=== PATIENT | female | born 1950 | race Caucasian/White ===

== ENCOUNTER 2016-06-17 15:33 | Inpatient (IN) | payer OTHER ==
[~2016-06-17] VITALS: Ht 167.6 cm; Wt 113.4 kg
--- NOTE | 2016-06-17 16:19 | NUR ---
PT BROUGHT IN BY CO-WORKER FOR COMPLAINT OF GENERAL ILLNESS AND NOT FEELING WELL. PT WORKS AT [employer]. PT STATED TO CO-WORKERS THAT SHE WAS NOT FEELING WELL. SHE HAD VOMITED MULTIPLE TIMES AND WAS FEELING COLD. EMS CALLED AND PT. WAS EVALUATED. PT WAS FOUND TO BY HYPOTENSIVE AND TACHYCARDIC. PT DID NOT WANT TO BE TRANSPORTED AND SIGNED OUT AMA. EMS LEFT AND PT CONDITION CONTINED TO BECOME WORSE. PT WAS TRANSPORTED TO ED BY CO-WORKERS AND EN ROUTE TO ED PT HAD LARGE DIARRHEA BOWEL MOVEMENT. UPON ARRIVAL PT APPEARED WEAK AND REQUIRED ASSISTANCE TO [place]. CLOTHING REMOVED AND PT WAS CLEANED. PT WAS ABLE TO OFFER ASSISTANCE BY ROLLING OVER SIDE TO SIDE DURING CLEAN UP. IV STARTED AND PT. PLACED ON CM. MSE COMPLETED BY DR. GARCÍA.
--- NOTE | 2016-06-17 16:30 | NUR ---
LAB AT BEDSIDE FOR BLOOD DRAW
[2016-06-17 16:42] LABS: BASOPHIL % 0.1 % (0-2); PLATELET COUNT 156 x10^3mcL (130-400); RED CELL DISTRIBUTION WIDTH 14.5 % (11.5-14.5)
[2016-06-17 16:53] LABS: CALCIUM 8.1 mg/dL (8.5-10.1); CARBON DIOXIDE 16.7 mmol/L (21-32); CREATININE SERUM 3.4 mg/dL (0.6-1.0); POTASSIUM SERUM 3.3 mmol/L (3.5-5.1)
[2016-06-17 17:04] LABS: BILIRUBIN TOTAL 0.9 mg/dL (0.20-1.00)
[2016-06-17 17:05] LABS: ALBUMIN 2.9 g/dL (3.4-5.0)
--- NOTE | 2016-06-17 17:17 | NUR ---
GAVE PT ICE CHIPS, OK PER DR. GARCÍA.
[2016-06-17 17:39] LABS: CK-MB 0.8 ng/mL (0-3.6)
--- NOTE | 2016-06-17 18:53 | NUR ---
REPORT CALLED TO VALORIE MORENO, SHE WILL ASSUME CARE PRIMARY RN POST TRANSFER.
--- NOTE | 2016-06-17 19:02 | NUR ---
INFORMED [place] OF NEEDING TO FINISH 2LITERS OF NS GOING AT 150ML/HR, NEEDS TO BE FULLY ADMINISTERED FOR SEPSIS PROTOCOL.
[2016-06-17 19:15] VITALS: BP 109/64
--- NOTE | 2016-06-17 19:46 | NUR ---
RECEIVED REPORT FROM VALORIE MORENO. PT RECEIVING NS AT 150ML/HR PER ORDER. ORIENTED TO ROOM AND SURROUNDINGS. SURU TO ADMIT PATIENT AT THIS TIME.
[2016-06-17 19:52] LABS: CHOLESTEROL/HDL RATIO 7.3
[2016-06-17 19:56] LABS: FREE T4 0.26 ng/dL (0.76-1.46)
[2016-06-17 19:58] LABS: T3 TOTAL 0.58 ng/mL
--- NOTE | 2016-06-17 20:00 | NUR ---
RECEIVED PATIENT FROM NURSE SURU. A & 0 X 4. LUNG SOUNDS CLEAR AND UNLABORED, ON NC @ 2L. DENIES ABD PAIN. BOWEL SOUNDS ACTIVE X 4 QUADRANTS. VOIDS WITHOUT DIFFICULTY. C/O GENERALIZED WEAKNESS. SKIN INTACT. IVF INFUSING NS AT 150 ML/HR TO LEFT WRIST, NO REDNESS OR SWELLING. RADIAL PULSES PALPABLE. PEDAL PULSES PAPLPABLE BUT WEAK. BED IN LOW POSITION, CALL LIGHT WITHIN REACH. INSTRUCTED TO CALL FOR ASSISTANCE.
[2016-06-17 20:08] VITALS: BP 109/64
--- NOTE | 2016-06-17 20:11 | NUR ---
RECEIVED PT FROM ED VIA [place]. ORIENTED PT TO ROOM AND SURROUNDINGS. IV NOTED TO LW AND RFA PATENT AND INTACT. TELE 7 PLACED ON PT READING STA. INSTRUCTED PT ON THE USE OF CALL LIGHT FOR ASSISTANCE. ENDORSED PT TO PRIMARY NURSE AYO
[2016-06-17 21:30] VITALS: BP 114/57
[2016-06-17 21:37] LABS: FREE THYROXINE INDEX 0.4 ug/dL (1.4-4.5); T4(THYROXINE) 1.2 ug/dL (4.7-13.3)
[2016-06-18] VITALS (9 sets, daily range): BP systolic 75–129; BP diastolic 42–84
--- NOTE | 2016-06-18 01:00 | NUR ---
RESTING IN BED WITH EYES CLOSED. LAYING SUPINE, HOB ELEVATED 30 DEGREES. NC @ 2 L. BREATHING EVEN AND UNLABORED. NO ACUTE DISTRESS NOTED. IVF INFUSING NS @ 150 ML/HR TO LEFT WRIST, NO REDNESS OR SWELLING. ON TELE #7, SINUS TACHY. BED IN LOW POSITION, CALL LIGHT WITHIN REACH. WILL CONTINUE TO MONITOR.
--- NOTE | 2016-06-18 04:16 | NUR ---
BP: 73/36, MAP: 45. HR: 94. ASYMPTOMATIC. DR. MOODY NOTIFIED.
--- NOTE | 2016-06-18 06:08 | NUR ---
BP 75/42, MAP 53 AFTER BOLUS PER ORDERS. DR MOODY PAGED AT THIS TIME. PT ASYMPTOMMATIC. WILL CONTINUE TO MONITOR.
--- NOTE | 2016-06-18 06:12 | NUR ---
DR MOODY INFORMED OF BP 75/42 AFTER BOLUS. NO FURTHER ORDERS AT THIS TIME. WILL CONTINUE TO MONITOR.
[2016-06-18 07:01] LABS: PLATELET COUNT 115 x10^3mcL (130-400); RED CELL DISTRIBUTION WIDTH 14.7 % (11.5-14.5)
--- NOTE | 2016-06-18 07:01 | NUR ---
DR MOODY PAGED TO NOTIFY HIM OF ELEVATION IN WBCs TO 24.4. NO RETURN CALL OF YET. WILL CONTINUE TO MONITOR
[2016-06-18 07:06] LABS: CALCIUM 7.1 mg/dL (8.5-10.1); CREATININE SERUM 3.8 mg/dL (0.6-1.0); PHOSPHOROUS 2.7 mg/dL (2.5-4.9); POTASSIUM SERUM 3.8 mmol/L (3.5-5.1)
--- NOTE | 2016-06-18 07:20 | NUR ---
RECIEVED REPORT FROM AYO MORENO AT BEDSIDE. PT IS AAOX4 ABLE TO FOLLOW VERBAL COMMANDS. PT IS LAYING FLAT WITH FEET ELEVATED. PT'S FACE IS RED. PT ON TELE #7 ST HR 101. PT HAS AUDIBLE WHEEZING AND DIMINISHED LUNG SOUNDS. PT RECIEVING 3LO2 VIA MAGALY. PT IS TAKING SHALLOW BREATHES RR20. PT HAS WEAK PEDAL PAULSE AND TRACE EDEMA ON BLE. PT REPORT HAVING DIARREAH THIS AM, BS ACTIVE X4. DENIES ABD PAIN. PT IS ABLE TO AMBULATE TO BATHROOM WITH ASSIST AND SLOW GAIT. PT DENIES ANY PAIN AT THIS TIME. 2ND BOLUS INSUFING AT THIS TIME. BED AT LOW AND CALL LIGHT WITHIN REACH.
--- NOTE | 2016-06-18 07:21 | NUR ---
DR MOODY NOTIFIED OF WBCs. NO FURTHER ORDERS AT THIS TIME. BP AFTER SECOND BOLUS 77/45, MAP 53. DR MOODY NOTIFIED VIA [facility]. PT REMAINS ASYMPTOMMATIC. LOWER EXTREMITIES ELEVATED. IV PATENT. CALL LIGHT WITHIN REACH, BED IN LOW POSITION. WILL ENDORSE CARE TO MIN RN ON ONCOMING SHIFT.
--- NOTE | 2016-06-18 08:18 | NUR ---
500ML BOLUS COMPLETED AND VITAL IS TAKEN 84/57 MAP 65 HR 94. NS INFUSING AT 150ML/HR TO RIGHT WRIST. DR. BOWLES IS AWARE. WILL CONTINUE TO MONITOR.
--- NOTE | 2016-06-18 09:38 | NUR ---
3RD LITER OF BOLUS COMPLETED PT IS AAOX4 ABLE TO FOLLOW VERBAL COMMANDS. PT DENIES OF DIZZINESS. BP 109/68 MAP 82 RECIEVING 3LO2 VIA MAGALY 94% TEMPT 98.6 HR 101. WILL CONTINUE TO MONITOR PT.
--- NOTE | 2016-06-18 09:59 | NUR ---
PT AMBULATED FROM BATHROOM TO BED 88%O2SAT WITH SOB. PT BACK ON BED AND IS [id number] O2 VIA MAGALY, 94%O2SAT. BED AT LOW AND CALL LIGHT WITHIN REACH. WILL CONTINUE TO MONITOR.
--- NOTE | 2016-06-18 10:36 | NUR ---
DR. LOONEY IS AWARE OF GRAM NEGATIVE OTF BACILLI IN BLOOD CULTURE AND HOLD FOR PT TO TRANSFER TO ICU. PT'S MAP IS ABOVE 65 AT THIS TIME. WILL CONTINUE TO MONITOR. BED AT LOW AND CALL LIGHT WITHIN REACH.
--- NOTE | 2016-06-18 12:28 | NUR ---
PT IS USING PHONE IN BED. PT IS AAOX4 ABLE TO FOLLOW VERBAL COMMANDS DENIES LINCOL[place]. V/S STABLE. BED AT LOW AND CALL LIGHT WITHIN REACH.
--- NOTE | 2016-06-18 17:18 | NUR ---
TEMPT OF 100.4, STARTED COOLING MEASURES. PT HAS ONE BLANKET ON AND ROOM COOLED. WILL CONTINUE TO MONITOR. BED AT LOW AND CALL LIGHT WITHIN REACH.
--- NOTE | 2016-06-18 17:22 | NUR ---
[facility] DR. RIZVI TO NOTIFY TEMP 100.5. PER [facility] TEXT IS SENT.
[2016-06-18 17:34] LABS: SEGMENTED NEUTROPHILS 53 % (37-75)
[2016-06-18 17:35] LABS: BAND NEUTROPHIL 38 % (0-10); MONOCYTE 3 % (0-7)
[2016-06-18 17:36] LABS: METAMYELOCTE 4 % (0-2)
[2016-06-18 17:37] LABS: rbc morphology (normal/abnorm) NORMAL (NORMAL)
[2016-06-18 17:38] LABS: PLATELET MORPHOLOGY PLATELETS DECREASED
--- NOTE | 2016-06-18 18:17 | NUR ---
PT RESPONDED WELL TO TYLENOL TEMPT 99. WILL CONTINUE TO MONITOR PT. BED AT LOW AND CALL LIGHT WITHIN REACH.
--- NOTE | 2016-06-18 19:29 | NUR ---
REPORT GIVEN TO AYO MORENO AND TAMIE RN AT BEDSIDE AND ENDORSED ALL CARE TO THEM.
--- NOTE | 2016-06-18 19:50 | NUR ---
A & O X 4. BREATHING EVEN AND UNLABORED ON ROOM AIR. WHEEZES AUDIBLE ON EXHALATION. EDUCATED ON IMPORTANCE OF USING I/S 10 X/HR, PT WAS ABLE TO RETURN DEMONSTRATION. RADIAL PULSES PALPABLE, PEDAL PULSES WEAK. ON TELE #7, SINUS RHYTHM. BOWEL SOUNDS ACTIVE X 4 QUADRANTS. SKIN INTACT. DENIES PAIN AND SOB. IV TO LEFT WRIST LEAKING, DISCONTINUED. NEW 20 GUAGE STARTED TO RIGHT HAND, NS INFUSING AT 150 ML/HR. TRACE EDEMA NOTED TO RIGHT HAND, INSTRUCTED TO KEEP ELEVATED ON PILLOW. BED IN LOW POSITION, CALL LIGHT WITHIN REACH. INSTRUCTED TO USE CALL LIGHT FOR ASSISTANCE.
--- NOTE | 2016-06-19 01:00 | NUR ---
RESTING WITH EYES CLOSED. AWAKENS EASILY TO VERBAL STIMULI. HOB ELEVATED 30 DEGREES. BREATHING EVEN AND UNLABORED. NO ACUTE DISTRESS NOTED. REDUCED SWELLING TO RIGHT HAND, REMAINS ELEVATED. IVF INFUSING AND WITHOUT DIFFICULTY. BED IN LOW POSITION, CALL LIGHT IN REACH. WILL CONTINUE TO MONITOR.
[2016-06-19 06:11] VITALS: BP 102/67
[2016-06-19 06:53] LABS: CALCIUM 7.3 mg/dL (8.5-10.1); CARBON DIOXIDE 14.8 mmol/L (21-32); POTASSIUM SERUM 4.2 mmol/L (3.5-5.1)
--- NOTE | 2016-06-19 07:02 | NUR ---
AWAKE, RESTING IN BED. NO ACUTE CHANGES DURING SHIFT. WILL ENDORSE TO ONCOMING SHIFT.
[2016-06-19 07:20] LABS: CREATININE SERUM 4.5 mg/dL (0.6-1.0)
--- NOTE | 2016-06-19 07:27 | NUR ---
RECEIVED PT LAYING IN BED ASLEEP. NO APPARENT SIGNS OF ACUTE DISTRESS NOTED AT THIS TIME. IV SITE PATENT AND INFUSING WELL. INFORMATION BOARD UPDATED. CALL LIGHT WITHIN REACH. WILL CONTINUE TO MONITOR
[2016-06-19 07:34] LABS: PLATELET COUNT 96 x10^3mcL (130-400)
[2016-06-19 09:21] VITALS: BP 106/68
--- NOTE | 2016-06-19 10:00 | NUR ---
PT RESTING IN BED WATCHING TV. DENIES PAIN AT THIS TIME. MORNING MED GIVEN. PROVIDED PT TEACHING ABOUT LASIX. PT APPEARED RECEPTIVE. CALL LIGHT WITHIN REACH. ENCOURAGED TO CALL FOR ASSITANCE WHEN NEEDED. WILL CONTINUE TO MONITOR
[2016-06-19 10:42] LABS: BAND NEUTROPHIL 14 % (0-10); BASOPHIL 0 % (0-2); MONOCYTE 1 % (0-7); SEGMENTED NEUTROPHILS 82 % (37-75)
[2016-06-19 10:43] LABS: PLATELET MORPHOLOGY PLATELETS DECREASED; rbc morphology (normal/abnorm) ABNORMAL (NORMAL)
--- NOTE | 2016-06-19 12:33 | NUR ---
PT LAYING IN BED WATCHING TV. FAMILY AT BEDSIDE. PROVIDED TEACHING IN REGARDS TO FLUID RESTRICTION AND STRICT I&O. PT RECEPTIVE. DENIES DISCOMFORT AT THIS TIME. CALL LIGHT WITHIN REACH. WILL CONTINUE TO MONITOR
[2016-06-19 12:37] LABS: UA SPECIFIC GRAVITY <=1.005 (1.005-1.035); microscopic required? YES; urine erythrocyte 1+ (NEGATIVE)
[2016-06-19 14:08] VITALS: BP 116/72
--- NOTE | 2016-06-19 14:45 | NUR ---
PT NO LONGER ON FLUID RESTRICTION PER DR. RIZVI
[2016-06-19 16:30] LABS: BILIRUBIN TOTAL 0.7 mg/dL (0.20-1.00); CALCIUM 7.6 mg/dL (8.5-10.1); CARBON DIOXIDE 18.8 mmol/L (21-32); POTASSIUM SERUM 3.8 mmol/L (3.5-5.1); TOTAL PROTEIN, SERUM 6.3 g/dL (6.4-8.2)
[2016-06-19 16:31] LABS: ALBUMIN 2.5 g/dL (3.4-5.0)
[2016-06-19 17:46] VITALS: BP 121/72
--- NOTE | 2016-06-19 21:01 | NUR ---
A&0 X 4. BREATHING EVEN AND UNLABORED, DIMINISHED BILAT. NO WHEEZES AUDIBLE. TRACT EDEMA TO HANDS BILAT. RADIAL AND PEDAL PULSES PALPABLE. PEDAL PULSES WEAK. BOWEL SOUNDS ACTIVE X 4 QUADRANTS. SKIN INTACT. DENIES PAIN. NS INFUSING 100 ML/HR TO RIGHT HAND, NO REDNESS OR SWELLING. BED IN LOW POSITION, CALL LIGHT WITHIN REACH. INSTRUCTED TO CALL FOR ASSISTANCE.
[2016-06-19 21:03] VITALS: BP 106/70
[2016-06-19 22:38] LABS: AMPHETAMINE QUAL UR NONE DETECTED (NEG <=1000)
--- NOTE | 2016-06-19 23:51 | NUR ---
NURSING CO-SIGN THE DOCUMENTATION ENTERED BY THE ORIENTEE HAS BEEN REVIEWED. REVIEWED/CO-SIGNED BY: Parag Pearson DOCUMENTATION DONE BY: TAMIE MARTÍNEZ
--- NOTE | 2016-06-20 01:05 | NUR ---
RESTING WITH EYES CLOSED. HOB ELEVATED 30 DEGREES. BREATHING EVEN AND UNLABORED. IV PATENT AND INFUSING. NO ACUTE DISTRESS NOTED. BED IN LOW POSITION, CALL LIGHT WITHIN REACH. WILL CONTINUE TO MONITOR.
[2016-06-20 05:30] VITALS: BP 111/71
--- NOTE | 2016-06-20 06:37 | NUR ---
AWAKE AND ALERT. RESTING IN BED. BREATHING EVEN AND UNLABORED. DENIES SOB AND PAIN. EDEMA TO BUE HAS IMPROVED. IVF INFUSING NS @ 100 ML/HR NO REDNESS OR SWELLING. NO ACUTE CHANGES DURING SHIFT. BED IN LOW POSITION, CALL LIGHT IN REACH. WILL ENDORSE TO ONCOMING RN.
--- NOTE | 2016-06-20 07:35 | NUR ---
AAO X4.DENIES ANY PAIN/DISCOMFORT.LUNGS SOUND DIM ON THE BASES.ON SR ON THE MONITOR.IVF NS GOING AT 100 ML/HR INFUSING WELL. BUE WITH 2+ EDEMA.INSTRUCTED PT TO ELEVATE ON A PILLOW.CALL LIGHT WITHIN REACH.INSTRUCTED TO CALL FOR ANY PAIN/DISCOMFORT.WILL CONTINUE TO MONITOR PT.
[2016-06-20 07:36] LABS: T3 TOTAL 0.41 ng/mL
[2016-06-20 07:37] LABS: CALCIUM 7.8 mg/dL (8.5-10.1); CARBON DIOXIDE 18.3 mmol/L (21-32); MAGNESIUM 2.5 mg/dL (1.8-2.4); PHOSPHOROUS 4.2 mg/dL (2.5-4.9); POTASSIUM SERUM 4.1 mmol/L (3.5-5.1)
[2016-06-20 07:41] LABS: PLATELET COUNT 84 x10^3mcL (130-400); RED CELL DISTRIBUTION WIDTH 15.2 % (11.5-14.5)
[2016-06-20 07:47] LABS: FREE T4 0.66 ng/dL (0.76-1.46)
[2016-06-20 07:55] LABS: CREATININE SERUM 4.8 mg/dL (0.6-1.0)
--- NOTE | 2016-06-20 08:20 | NUR ---
AND MEDICINE TEAM AT BEDSIDE.INFORMED PT ABOUT THE PLAN OF CARE.PT COOPERATIVE
[2016-06-20 08:35] LABS: BAND NEUTROPHIL 19 % (0-10); BASOPHIL 0 % (0-2); MONOCYTE 2 % (0-7); SEGMENTED NEUTROPHILS 74 % (37-75)
[2016-06-20 08:37] LABS: PLATELET MORPHOLOGY PLATELETS DECREASED; rbc morphology (normal/abnorm) ABNORMAL (NORMAL); tear drop cell (dacryocyte) 1+
[2016-06-20 08:50] LABS: T4(THYROXINE) 2.6 ug/dL (4.7-13.3)
--- NOTE | 2016-06-20 10:08 | NUR ---
INFORMED ABOUT THE CRITICAL LAB + E-COLI AND MDRO OF BLOOD CULTURE.PUT PT ON CONTACT ISOLATION.
[2016-06-20 10:23] VITALS: BP 122/71
--- NOTE | 2016-06-20 13:25 | NUR ---
P.T. NOTES Pt CLEARED PER NURSING FOR PT EVAL. PATIENT WAS ADMITTED TO HOSPITAL S/P SEPSIS AND GASTROENTERITIS AND SYNCOPE. SHE LIVES ALONE AND WAS IND WITH ADLS, DENIES USE OF ASSISTIVE DEVICE OR H/O FALLS. 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 S: Pt PRESENTS AWAKE, ALERT AND AGREEABLE FOR PT EVAL. DENIES PAIN OR DIZZINESS AT THIS TIME. NO NOTED SOB. TALKATIVE AND COOPERATIVE. CONTACT ISOLATION PRECAUTIONS. O: PLEASE SEE EVAL FOR DETAILS. Pt MOSTLY IND W/BED MOB, CGA WITH TRANSFERS AND CGA/MIN A FOR GT WITH NO ASSISTIVE DEVICE FOR APPROX 160 FT W/ONE SHORT STANDING BREAK FOR ENERGY CONSERVATION, BREATHING TECHNIQUES SHE EXHIBITED SOME SOB TOWARDS END OF GT. Pt EDU ON SAFETY, FALL PREVENTION, ROLE OF PT, W/GOOD LEARNING EXPRESSED. Pt SAFELY ASSISTED BTB, SEATED EOB W/TRAY IN FRONT, ALL LINES INTACT, CALL LIGHT REACH. COOPERATIVE AND APPRECIATIVE OF CARE. VS PRE PT: BP 129/89, HR 92BPM, SP02 96%. POST GT, SP02 96-97% DESPITE SOME SOB. NO C/O DIZZINESS. A: Pt TOLERATED PT WELL BUT IS A FALL RISK D/T DECLINE IN FUNCTION, GENERAL DECONDITIONING. NOTED ONE LOB TOWARDS END OF GT, ABLE TO RECOVER W/STEPPING STRATEGY. Pt IS MORBID OBESE AND DEMO'S WADDLING GAIT W/WBOS AND DECREASED KAI. WILL BENEFIT FROM PT DURING ACUTE STAY AND POSSIBLE POST ACUTE STAY FOR CONDITIONING/STRENGTHENING/BALANCE TRAINING FOR FALL PREVENTION. P: POC REVIEWED W/TOOL SETTER. PLEASE SEE PATIENT ONCE DAILY, 6X/WK,1 WEEK. EVAL 35' [id number] TUG 13 SEC Pt PROVIDED W/SEATED THERA EX FOR STRENGTHENING: HIP FLEXION MARCHES, ANKLE DF/PF, HIP ADD/ABD, LAQ, SCAP RETRACTION. ALSO PROVIDED W/ENERGY CONSERVATION STRATEGIES WELL PLB TECHNIQUES. PERFORMED TO TOLERANCE W/GOOD LEARNING. EX 12' [phone]
[2016-06-20 14:45] VITALS: BP 130/78
[2016-06-20 17:26] VITALS: BP 130/86
[2016-06-20 17:44] VITALS: Ht 167.6 cm; Wt 113.4 kg
--- NOTE | 2016-06-20 18:44 | NUR ---
NO SIGNIFICANT CHANGE NOTED.WILL ENDORSE TO NEXT SHIFT.
--- NOTE | 2016-06-20 20:00 | NUR ---
RECEIVED PT IN BED AWAKE, ALERT, ORIENTED X4. FAMILY AT BEDSIDE. LUNG SOUNDS DIMINISHED. NO RESPIRATORY DISTRESS. TELE 7 SHOWS NSR. NO CHEST PAIN NOTED. BS ACTIVE IN ALL FOUR QUADS, PT ABD IS OBESE. BUE WITH EDEMA, ELEVATED WITH PILLOWS. PT ABLE TO GET OOB WITH MINIMAL ASSISTANCE. FULL ROM. NS INFUSING TO RIGHT HAND AT 100ML/HR. SHIFT ASSESSMENT COMPLETED. PT IS IN CONTACT ISOLATION, PRECAUTIONS ENFORCED. BED IS IN LOWEST POSITION. CALL LIGHT WITHIN REACH. WILL CONTINUE TO MONITOR CLOSELY.
[2016-06-20 21:13] VITALS: BP 136/83
--- NOTE | 2016-06-20 22:40 | NUR ---
PT RESTING IN BED IN NO DISTRESS. ALL DUE MEDS GIVEN ORDERED. CALL LIGHT WITHIN REACH. PT REMAINS IN CONTANT ISOLATION. ALL NEEDS TENDED TO. WILL CONTINUE TO MONITOR CLOSELY.
--- NOTE | 2016-06-21 03:00 | NUR ---
PT APPEARS TO BE SLEEPING IN NO DISTRESS. IVF ONGOING, NEW BAG HUNG AT THIS TIME. ALL NEEDS TENDED TO. CALL LIGHT WITHIN REACH. WILL CONTINUE TO MONITOR CLOSELY.
[2016-06-21 05:50] VITALS: BP 123/76
--- NOTE | 2016-06-21 06:00 | NUR ---
PT SLEPT ON AND OFF THROUGH OUT THE NIGHT. NO DISTRESS NOTED. ALL DUE MEDS GIVEN ORDERED. CLEOCIN INFUSING WELL AT THIS TIME. ALL NEEDS TENDED TO. CALL LIGHT WITHIN REACH. WILL ENDORSE TO INCOMING SHIFT.
[2016-06-21 06:33] LABS: IRON 76 ug/dL (50-170)
[2016-06-21 06:34] LABS: TOTAL IRON BINDING CAPACITY 149 ug/dL (250-450)
[2016-06-21 06:42] LABS: CALCIUM 7.9 mg/dL (8.5-10.1); CARBON DIOXIDE 16.3 mmol/L (21-32); MAGNESIUM 2.4 mg/dL (1.8-2.4); PHOSPHOROUS 3.8 mg/dL (2.5-4.9); POTASSIUM SERUM 3.8 mmol/L (3.5-5.1)
[2016-06-21 06:44] LABS: CREATININE SERUM 4.4 mg/dL (0.6-1.0)
--- NOTE | 2016-06-21 07:50 | NUR ---
AAO X4.DENIES ANY PAIN/DISCOMFORT.LUNG SOUND DIM ON THE BASES.ON SR ON THE MONITOR.IVF NS GOING AT 100 ML/HR INFUSING WELL.ON CONTACT ISOLATION FOR E.COLI AND MDRO OF THE BLOOD.CALL LIGHT WITHIN REACH.INSTRUCTED TO CALL FOR ANY PAIN/DISCOMFORT.PT VERBALIZES UNDERSTANDING.
[2016-06-21 07:52] LABS: PLATELET COUNT 101 x10^3mcL (130-400); RED CELL DISTRIBUTION WIDTH 15.4 % (11.5-14.5)
--- NOTE | 2016-06-21 08:20 | NUR ---
AND MEDICINE TEAM AT BEDSIDE,INFORMED PT ABOUT THEPLAN OF CARE.WILL STAY ONE MORE DAY DUE TO WBC STILL HIGH.PT COOPERATIVE WITH THE PLAN OF CARE.
[2016-06-21 09:47] VITALS: BP 124/75
[2016-06-21 10:48] LABS: BAND NEUTROPHIL 2 % (0-10); BASOPHIL 0 % (0-2); MONOCYTE 3 % (0-7); SEGMENTED NEUTROPHILS 85 % (37-75)
[2016-06-21 10:49] LABS: PLATELET MORPHOLOGY PLATELETS DECREASED; rbc morphology (normal/abnorm) ABNORMAL (NORMAL)
--- NOTE | 2016-06-21 12:31 | NUR ---
PT NOTES TIME [id number] S: CLEARED BY RN FOR P.T. TX. PATIENT IS AWAKE & ALERT IN A SEMI SWARTZ POSITION IN BED. AGREEABLE TO P.T. TX. NO C/O PAIN OR DIZZINESS AT THIS TIME. O: VS AT REST BP 131/79, HR 90 BPM, SPO2 ON RA 95% BED MOBILITY: SUPINE<>SIT INDEPENDENT TRANSFER: SIT<>STAND W/ SBA. GAIT: 160FT W/ NO A.D. CGA. 2 LOB, BUT PATIENT IS ABLE TO CORRECT BALANCE. DECREASE GAIT VELOCITY. SHORTENED STRIDE LENGTHS. SLIGHTLY UNSTEADY GAIT. 1 STANDING REST PERIODS D/T FATIGUE. AUDIBLE BREATHING, BUT PATIENT'S SPO2 ON RA 94%. EDUCATED PATIENT ON ENERGY CONSERVATION TECHNIQUE & SAFETY FOR FALL PREVENTION W/ G UNDERSTANDING. COOPERATIVE & APPRECIATIVE OF CARE. INSTRUCTED ON THER EX FOR BILAT LE/UE JAN. PATIENT IS SAFELY & COMFORTABLY IN A SEMI SWARTZ POSITION IN BED W/ CALL BUTTON & TABLE IN REACH. RN NOTIFIED. P: DISCUSSED W/ PRIMARY PHYSICAL THERAPIST [id number]',[id number]'
[2016-06-21 13:09] VITALS: BP 130/86
--- NOTE | 2016-06-21 16:01 | NUR ---
PT COMFORTABLE NO COMPLAINTS.
[2016-06-21 17:01] VITALS: BP 138/81
--- NOTE | 2016-06-21 18:26 | NUR ---
NO SIGNIFICANT CHANGE NOTED.WILL ENDORSE TO NEXT SHIFT.
--- NOTE | 2016-06-21 19:40 | NUR ---
REC'D PT FROM DAY SHIFT NURSE. CONTACT PRECAUTIONS IN PLACE. PT AAOX4, SPEECH CLEAR. NO COMPLAINTS AT THIS TIME. FEELS "FINE." NO SIGNS OF DISTRESS NOTED. BREATHING EVEN/UNLABORED ON RA. DENIES SOB. IS ENCOURAGED. ON TELE #7. DENIES CP, PALPITATIONS, OR DIZZINESS. NONPITTING EDEMA TO BUE/BLE. SALINE LOCKED FOR NOW. WILL GIVE FLUIDS WHEN VERIFIED WITH PHARM. CALL LIGHT WITHIN REACH, BED AT LOWEST POSITION. WILL CONTINUE TO MONITOR.
--- NOTE | 2016-06-21 20:00 | NUR ---
INFORMED CHARGE NURSE CHRISTIANO OF FLUID ORDER UNDER ADDITIONAL NURSING. ENTERED IVF. WILL ADMINISTER ONCE PHARMACY BRINGS FLUIDS UP
--- NOTE | 2016-06-21 20:39 | NUR ---
PHARMACY INQUIRED WHETHER FLUIDS WILL BE CONTINUOUS OR ONE TIME. SPOKE TO DR. HENRY. ORDERED TO GIVE ONLY ONE L OF FLUIDS WITH SODIUM BICARB FOR NOW.
[2016-06-21 21:51] VITALS: BP 135/80
--- NOTE | 2016-06-22 03:13 | NUR ---
PT RESTING IN BED WITH EYES CLOSED. NO SIGNS OF DISTRESS NOTED. BREATHING EVEN/UNLABORED ON RA. CALL LIGHT WITHIN REACH, BED AT LOWEST POSITION. WILL CONTINUE TO MONITOR.
--- NOTE | 2016-06-22 05:50 | NUR ---
DUE MEDS GIVEN. PT RESTING IN BED COMFORTABLY. DENIES ANY PAIN OR DISCOMFORT. BREATHING EVEN/UNLABORED ON RA. NO SIGNIFICANT CHANGES DURING SHIFT. STRICT I&0 WITH 2L FLUID RESTRICTION ENFORCED. CALL LIGHT WITHIN REACH, BED AT LOWEST POSITION. WILL ENDORSE TO DAY SHIFT NURSE.
[2016-06-22 06:03] VITALS: BP 124/77
--- NOTE | 2016-06-22 06:23 | NUR ---
PT REPORTS VERY LITTLE PAIN. DENIED PAIN MEDS.
[2016-06-22 07:43] LABS: PLATELET COUNT 100 x10^3mcL (130-400)
[2016-06-22 07:47] LABS: CALCIUM 8.1 mg/dL (8.5-10.1); CARBON DIOXIDE 21.2 mmol/L (21-32); CREATININE SERUM 3.8 mg/dL (0.6-1.0); POTASSIUM SERUM 3.8 mmol/L (3.5-5.1)
--- NOTE | 2016-06-22 08:00 | NUR ---
RECEIVED PT IN BED ALERT AND ORIENTED X4. TELE #7, NSR, HR 95. DENIES ANY PAIN OR DISCOMFORT. BREATHING EVEN AND UNLABORED ON RA, LUNG SOUNDS DIMINISHED. DENIES ANY GI UPSET. VOIDS FREELY WITHOUT PAIN OR DIFFICULTY. AMBULATORY WITH MINIMAL ASSISTANCE. SKIN INTACT. 1+ EDEMA NOTED TO BLE. NON-PITTING EDEMA NOTED TO BUE. INSTRUCTED TO USE CALL LIGHT WHEN IN NEED OF ANY ASSISTANCE.
[2016-06-22 08:29] LABS: ATYPICAL LYMPH 1 %; BAND NEUTROPHIL 1 % (0-10); BASOPHIL 0 % (0-2); MONOCYTE 3 % (0-7); SEGMENTED NEUTROPHILS 79 % (37-75)
[2016-06-22 08:30] LABS: PLATELET MORPHOLOGY PLATELETS DECREASED; rbc morphology (normal/abnorm) ABNORMAL (NORMAL)
[2016-06-22 09:17] VITALS: BP 102/60
[2016-06-22 12:43] VITALS: BP 143/93
--- NOTE | 2016-06-22 13:31 | NUR ---
PT NOTES TIME [id number] S: CLEARED BY RN FOR P.T. TX. PATIENT IS AWAKE & ALERT IN A SEMI SWARTZ POSITION IN BED. AGREEABLE TO P.T. TX. NO C/O PAIN OR DIZZINESS AT THIS TIME. O: VS AT REST BP 132/68, HR 92 BPM, SPO2 ON RA 95% BED MOBILITY: SUPINE<>SIT INDEPENDENT. TRANSFER: SIT<>STAND INDEPENDENT. GAIT: 115FT X 2 W/ NO A.D. SBA/CGA. 1 LOB, BUT ABLE TO CORRECT. LACKS ARM SWING DURING GAIT, BUT CORRECTS WHEN GIVEN VC TO NORMALIZE GAIT PATTERN. DECREASE GAIT VELOCITY. EDUCATED PATIENT ON SAFETY FOR FALL PREVENTION & HEP TO IMPROVE STRENGTH & BALANCE. PATIENT VERBALIZED UNDERSTANDING. STANDING BALANCE EXERCISE FORWARD LEG KICKS, HIP ABD/ADD, HIP EXTENSION, HEEL RAISES, TOE RAISES X 10 REPS W/ REST PERIODS IN BETWEEN. INSTRUCTED PATIENT ON SITTING EXERCISES FOR BILAT LE. PATIENT IS SAFELY & COMFORTABLY IN A SEMI SWARTZ POSITION IN BED W/ CALL BUTTON & TABLE IN REACH. LEFT IN CARE OF RN STUDENT/INSTRUCTOR. RN NOTIFIED. P: DISCUSSED W/ PRIMARY PHYSICAL THERAPIST [id number]',[id number]'
[2016-06-22] MEDS ORDERED: LEVAQUIN750 MG PO (15:28)
[2016-06-22] MEDS ORDERED: SODIUM BICARBO650 MG PO (15:31)
[2016-06-22] MEDS ORDERED: LEVOTHYROXIN0.025 M2 PO (15:32)
[2016-06-22] MEDS ORDERED: LAC PO (15:32)
[2016-06-22 15:55] VITALS: BP 143/93
--- NOTE | 2016-06-22 18:15 | NUR ---
DISCHARGE INSTRUCTIONS AND PRESCRIPTIONS GIVEN AND EXPLAINED TO PT, PT VERBALIZED UNDERSTANDING. IV AND TELE DC'D. 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 PT DISCHARGED HOME, BROUGHT OFF FLOOR VIA [facility] ACCOMPANIED BY RN.
== END 2016-06-22 18:09 | disposition home or self-care (01) | DRG 871 ==
LOC: ED 15:33 → DU 18:12
PROVIDERS: Emergency Medicine; Family Medicine; Internal Medicine Nephrology; ADMIT Family Medicine
DX: A41.51 Sepsis due to Escherichia coli [E. coli] (principal); N17.0 Acute kidney failure with tubular necrosis; E43 Unspecified severe protein-calorie malnutrition; E87.3 Alkalosis; J98.11 Atelectasis; N39.0 Urinary tract infection, site not specified; N17.9 Acute kidney failure, unspecified; Z68.41 Body mass index [BMI] 40.0-44.9, adult; K52.9 Noninfective gastroenteritis and colitis, unspecified; R65.20 Severe sepsis without septic shock; E83.42 Hypomagnesemia; E86.0 Dehydration; E87.6 Hypokalemia; E03.9 Hypothyroidism, unspecified; E66.9 Obesity, unspecified; D69.6 Thrombocytopenia, unspecified; D64.9 Anemia, unspecified; E78.5 Hyperlipidemia, unspecified; E87.8 Other disorders of electrolyte and fluid balance, not elsewhere classified; D72.825 Bandemia; I27.2 Other secondary pulmonary hypertension; Z91.14 Patient's other noncompliance with medication regimen
CPT/HCPCS: 80307; 83880; 84439; 87046; 87046-59; 97110-GP; 97116-GP; 97530-GP; G0480; J1940; J1956; J3475; J3490; J7030; J7620; Q0092